=== PATIENT | female | born 1990 | race Caucasian/White ===

== ENCOUNTER 2016-08-31 21:35 | Emergency (ER) | payer BC ==
[~2016-08-31] VITALS: Ht 160 cm; Wt 55.0 kg
[2016-09-01 01:30] VITALS: BP 104/73
== END 2016-09-01 01:46 | disposition home or self-care (01) ==
LOC: ER 23:14
DX: S10.93XA Contusion of unspecified part of neck, initial encounter (principal); V49.59XA Passenger injured in collision with other motor vehicles in traffic accident, initial encounter; Y93.89 Activity, other specified; Y99.9 Unspecified external cause status; Y92.89 Other specified places as the place of occurrence of the external cause
CPT/HCPCS: 70490; 99284; Z7610